=== PATIENT | female | born 1935 | race Caucasian/White ===

== ENCOUNTER → 2016-08-29 | Outpatient (CLI) | payer MEDICARE, BC | LOC: GMAJ 17:22 | PROVIDERS: ATTEND Family Medicine | DX: N30.00 Acute cystitis without hematuria (principal) ==

== ENCOUNTER 2016-09-05 16:05 | Inpatient (IN) | payer MEDICARE, BC ==
--- NOTE | 2016-09-05 17:40 | HP ---
HISTORY OF PRESENT ILLNESS: This 81 year-old pleasant white female is admitted to the hospital because of worsening shortness of breath, especially worsening over the last week, yet present over the last 2 weeks. She has had increasing episodes of orthopnea requiring sitting up on the side of the bed in order to breathe and even just walking it is getting to the point where she has to stop because of the exertional dyspnea and the shortness of breath associated. She was seen earlier today in Dr. Oliveira office and they ordered a beta natriuretic peptide which was elevated at 462 and a D-dimer which was elevated at 795 with no previous studies available for comparison. Chest x-ray was performed and the results of which are not available. She had swelling in her right lower extremity and was referred to the hospital for venous Doppler exam to rule out DVT and none was noted. She has apparently had swelling in the same extremity in years past on several occasions and each ultrasound study, at least 2 of them noted, were negative for DVT presence. In the clinic, she had saturations down to 92% with associated shortness of breath and worsening right lower extremity edema. She is on a lot of antihypertensive medications. It is of note that she did have an echocardiogram in October of 2009 which did reveal some aortic stenosis with regurgitation, otherwise with good ventricular function. No other echocardiograms performed recently. The patient did have a low degree of fever, over 99 degrees. The patient is admitted to the hospitalization for initiation of some gentle diuresis with parenteral loop diuretics as well as fluid restrictions and ambulation studies. Repeat chest x- ray in the morning, diabetes management, cardiac enzyme serial examination and cultures pending with associated DVT prophylaxis. PAST MEDICAL HISTORY: 1. Hypertensive with associated cardiovascular disease with history of aortic stenosis and worsening dyspnea. 2. Osteoarthritis. 3. Elevated lipids. 4. History of ureteral stones in the past. 5. History of right lower extremity edema chronically noted. 6. Low back pain with spinal stenosis. 7. Diabetes mellitus type 2 on oral therapy. 8. History of a cough with dusty inhibitor medication. 9. Some dizziness when turning over in the bed at nighttime. 10. History of elevated calcium requiring parathyroid removal. PAST SURGICAL HISTORY: 1. Hysterectomy. 2. Gallbladder removal. 3. Appendectomy. 4. . 5. Left knee replacement. 6. Tubal ligation. 7. Spine surgery of the lumbar spine. 8. Single benign parathyroidectomy performed years ago. CURRENT MEDICATIONS: Please refer to nurses notes and please note that one of the medicines, metoprolol 100 mg, she takes 200 mg in the morning but the initial outpatient record states that she was requested to take 200 mg twice a day which she does not take. ALLERGIES: PENICILLIN. FAMILY HISTORY: Positive for cancer and CVAs. SOCIAL HISTORY: She currently works at [employer]. She has never smoked. REVIEW OF SYSTEMS: The patient states that she has gained about 10 pounds in the last week with a lot of it being present with swelling of her right lower extremity and with increasing shortness of breath. HEENT: Dizziness upon movement and rolling over in the bed. LUNGS: Exertional shortness of breath, no cough or hemoptysis. CARDIOVASCULAR: No significant chest pains or palpitations. GI: Appetite is fairly good and she is on just a regular diet. Family states that she does not eat very much and does not drink much fluids either. NEUROLOGICAL : Quite weak and especially short of breath upon exertion with recurring episodes of right lower extremity edema state. She is on no diuresis in recent past. PHYSICAL EXAMINATION: VITAL SIGNS: Temperature 99.3, pulse 88, blood pressure 196/77, respirations 21, pulse ox 95% at rest on room air. Weight 107.5 kilos. GENERAL: The patient is awake, alert, cheerful and oriented. Family is present and are helpful with the history. At the present time with the patient lying in the bed with head elevated, she is not describing nearly the amount of dyspnea that she presented earlier, especially when walking down the hallway in the hospital. She tolerated the venous Doppler exam quite well with no DVT noted. HEENT: Unremarkable. NECK: No carotid bruits. Slight increased jugular venous distention on the right noted. CHEST: Diminished breath sounds with occasional rhonchi primarily in the bases but otherwise pretty clear. CARDIOVASCULAR: Heart tones are somewhat distant yet regular, not fast. ABDOMEN: Obese yet soft, no organomegaly, masses or tenderness. Bowel tones are present though somewhat decreased. Constipation has been noted recently. EXTREMITIES: Right leg is noticeably more prominent with increased circumference compared to the left but no erythema. She does have some slight tenderness upon palpation. NEUROLOGIC: No focal neurological deficits and the patient is awake, alert, and oriented and communicative. LABORATORY: Pending except for outpatient determination of a D-dimer of 795 and a beta natriuretic peptide of 462. Other studies pending including cardiac enzymes, thyroid function, electrolytes, urinalysis and chest x-ray pending. X-ray was taken in the clinic and results will be available when the clinic opens up again. ASSESSMENT: 1. Acute dyspnea with shortness of breath, orthopnea and exertional dyspnea aggravation over the last two weeks worsening. 2. Evidence of an acute congestive heart failure of undetermined type. 3. Echocardiographic evidence of aortic stenosis and regurgitation. 4. Febrile illness. 5. Hypertension quite severe with cardiovascular complications. 6. Chronic osteoarthritis. 7. Hyperlipidemia. 8. History of recurring urinary stones of ureteral location. 9. Recurring right lower extremity edema. 10. History of spinal stenosis with low back pain. 11. History of diabetes mellitus type 2. PLAN: The patient is admitted to the hospital for initiation of parenteral loop diuresis with furosemide. Observe closely intake and output. Observe electrolytes. Laboratory studies are pending including blood cultures because of the low grade fever present upon presentation. Repeat chest x-ray in the morning for reevaluation. Will hold off on significant IV hydration at this time because of the appearance of a fluid overloaded state. Reevaluate in the morning and close followup with Dr. Oliveira when stable. #[id number] [facility]
[2016-09-05] MEDS ORDERED: FUROSEMIDE INJ 20 MG/2 ML VIAL IV ONE (19:21)
[2016-09-05] MEDS ORDERED: MAGNESIUM HYDROXIDE 30 ML UD PO PRN (19:21)
[2016-09-05] MEDS ORDERED: NITROGLYCERIN 0.4 MG 25 EA TAB SL PRN (19:21)
[2016-09-05] MEDS ORDERED: SODIUM CHLORIDE 0.9% (FLUSH) 10 ML SYG IV PRN (19:21)
[2016-09-05] MEDS ORDERED: ONDANSETRON INJ 4 MG/2 ML VIAL IV PRN (19:21)
[2016-09-05] MEDS ORDERED: ACETAMINOPHEN 325 MG TAB PO PRN (19:21)
[2016-09-05] MEDS ORDERED: IV SET AND CAP CHANGE INJ INJ SCH (19:30)
[2016-09-05] MEDS ORDERED: ENOXAPARIN SODIUM 40 MG/0.4 ML SYG SUBCU SCH (20:00)
[2016-09-05] MEDS: SODIUM CHLORIDE 0.9% (FLUSH) 10 ML SYG IV SCH (20:16)
[2016-09-06] MEDS: METOPROLOL TARTRATE 50 MG TAB PO SCH ×2 (06:22→17:45)
[2016-09-06] MEDS: ACETAMINOPHEN W/COD #3 TAB 1 EA TAB PO PRN ×2 (06:27→20:21)
--- NOTE | 2016-09-06 07:17 | RAD ---
EXAM: Two view chest. INDICATION: Chest pain. COMPARISON: Chest x-ray: None. FINDINGS: Cardiac silhouette: Unremarkable. Cathryn: Unremarkable. Lobar consolidation: None. Pleural effusion: None. Pneumothorax: None. Other: The aorta is tortuous. Bones: S-shaped scoliosis of the thoracic spine Other: None. IMPRESSION: 1. No acute cardiopulmonary process. Electronically signed by: Murali Ca MD 09/06/2016 7:17 AM CDT Workstation: [id number]
[2016-09-06] MEDS ORDERED: metFORMIN HCL 500 MG TAB ONE (07:41)
[2016-09-06] MEDS: MULTIPLE VITAMIN 1 EA TAB PO SCH (08:52)
[2016-09-06] MEDS: metFORMIN XR 500 MG TAB.ER.24 PO SCH (08:52)
[2016-09-06] MEDS: FUROSEMIDE INJ 20 MG/2 ML VIAL IV SCH ×2 (08:53→17:45)
[2016-09-06] MEDS: amLODIPine BESYLATE 5 MG TAB PO SCH (08:53)
[2016-09-06] MEDS: SODIUM CHLORIDE 0.9% (FLUSH) 10 ML SYG IV SCH ×2 (08:55→20:21)
[2016-09-06] MEDS: CHOLECALCIFEROL 2,000 IU TAB PO SCH (08:55)
--- NOTE | 2016-09-06 13:29 | PN ---
DATE: 09/06/16 SUBJECTIVE: The patient is sitting up and eating on the side of her bed. She is still complaining of some lateral low right abdominal discomfort present for the last week. She feels that she has had somewhat similar discomfort in the past with recurring urinary ureteral stones which will require further followup and evaluation. She states she is still somewhat dyspneic on exertion today and does not know that he is a lot better and for this reason, we are still awaiting the ambulation study to assist in quantifying that degree of dyspnea and desaturation. She has not seen Dr. Charles, urologist, for quite a while and so scheduling an appointment may be helpful by tomorrow if an opening is available to more fully evaluate for possible stone. OBJECTIVE: VITAL SIGNS: Afebrile. Pulse 54. Blood pressure 170/74. Pulse oximetry 96%. She has lost approximately 2 pounds of weight overnight and has had a fairly good output of urine, over 1300 mL yesterday and last night with a fairly good response to even a lose dose of the furosemide parenterally given. She continues on a fluid restriction diet. LUNGS: Generally clear. Chest x- ray does not show any significant pulmonary edema at this time, though heart size is somewhat enlarged and atherosclerotic changes also present. LABORATORY: White count 5,900, hemoglobin 11.6, D-dimer 795. Chemistries show beta natriuretic peptide 462, potassium 4, glucose 121. Kidney functions normal. Urinalysis does show some hematuria and 1+ budding yeast. Stool guaiac negative on one occasion. Blood cultures negative at this time. ASSESSMENT: 1. Acute dyspnea with shortness of breath, orthopnea and exertional dyspnea aggravated and getting worse over the last two weeks. 2. Evidence of an acute congestive heart failure of undetermined type with elevated beta natriuretic peptide. 3. Echocardiographic evidence of aortic stenosis and regurgitation with recheck of an echocardiogram as soon as can be scheduled through the clinic. 4. Febrile illness, showing improvement. 5. History of hypertension, quite severe with cardiovascular sequelae. 6. Chronic osteoarthritis. 7. Hyperlipidemia. 8. History of recurring ureterolithiasis and the possibility of an acute recurrence in the last week on the right. Will require further investigation today. 9. Recurring right lower extremity edema with FABIOLA hose, elevation and gentle diuresis in process, showing slight improvement. 10. History of spinal stenosis with chronic low back pain. 11. History of diabetes mellitus, type 2, on oral hypoglycemic agent. PLAN: The patient will be scheduled today for a renal ultrasound to more clearly delineate the possibility of hydronephrosis and hydroureter if there is a significant ureteral stone present on the right. She has not seen Dr. Charles for sometime and may attempt to get scheduled in his [place] office tomorrow when he arrives to see if he would be able to assist with reviewing the ultrasound of the kidneys to be performed later today to assist with that evaluation. The patient remains on fluid restrictions. Ambulation by respiratory therapy is pending to assist with the determination of the etiology and the severity of the desaturation at the time of exertional dyspnea. Continue close evaluation and reevaluate in the morning. #[id number] [facility]
--- NOTE | 2016-09-06 13:39 | US ---
EXAM DESCRIPTION: Renal CLINICAL HISTORY: 81 years, Female, right ureteral stone? obstruction? COMPARISON: None. FINDINGS: Right kidney 11.3 cm. Left kidney 10.9 cm. Mild thinning of the renal cortex bilaterally suggesting chronic ischemic change. Mild hydronephrosis of the right kidney. There is also a cyst in the right kidney upper pole 7.3 x 5.4 x 5.8 cm. No views of the bladder provided. IMPRESSION: 1. Mild hydronephrosis of the right kidney. Discrete kidney or ureteral stone is not clearly seen 2. Large cyst upper pole right kidney about 7 cm 3. Left kidney unremarkable except for some mild chronic thinning of the renal cortex Electronically signed by: Lamin Rojas MD 09/06/2016 1:39 PM CDT
--- NOTE | 2016-09-06 13:40 | US ---
EXAM DESCRIPTION: Venous,Lower Extremity RT CLINICAL HISTORY: 81 years, Female, LOCALIZED [place] COMPARISON: None. FINDINGS: The right common femoral, superficial femoral, deep femoral, popliteal, posterior tibial and peroneal veins identified. Appropriate flow compressibility and augmentation. IMPRESSION: No evidence deep venous thrombosis right lower extremity. Electronically signed by: Lamin Rojas MD 09/06/2016 1:40 PM CDT
[2016-09-06] MEDS: ENOXAPARIN SODIUM 40 MG/0.4 ML SYG SUBCU SCH (20:22)
[2016-09-07] MEDS: ACETAMINOPHEN W/COD #3 TAB 1 EA TAB PO PRN ×3 (04:34→23:29)
[2016-09-07] MEDS: METOPROLOL TARTRATE 50 MG TAB PO SCH ×2 (08:12→16:58)
[2016-09-07] MEDS: metFORMIN XR 500 MG TAB.ER.24 PO SCH (08:12)
[2016-09-07] MEDS: FUROSEMIDE INJ 20 MG/2 ML VIAL IV SCH ×2 (08:52→16:59)
[2016-09-07] MEDS: CHOLECALCIFEROL 2,000 IU TAB PO SCH (08:52)
[2016-09-07] MEDS: MULTIPLE VITAMIN 1 EA TAB PO SCH (08:52)
[2016-09-07] MEDS: SODIUM CHLORIDE 0.9% (FLUSH) 10 ML SYG IV SCH ×2 (08:53→20:51)
[2016-09-07] MEDS: amLODIPine BESYLATE 5 MG TAB PO SCH (08:53)
[2016-09-07] MEDS: KETOROLAC TROMETHAMINE INJ 30 MG/ML VIAL IV PRN (10:33)
[2016-09-07] MEDS ORDERED: HYDROcodone 7.5MG/APAP 325MG 1 EA TAB PO PRN (11:09)
--- NOTE | 2016-09-07 11:32 | PN ---
DATE: 09/07/16 SUBJECTIVE: The patient is sitting up on the bed having increased discomfort in her right lower abdominal region resembling pain she has had in the past with ureteral or kidney stones. The pain has been present specifically off and on for the last week, but became worse earlier today. Yesterday, she did have a renal ultrasound performed which revealed a large right renal cyst about 7 cm in size as well as a degree of hydronephrosis and hydroureter on the right, not noted on the left. This is suggestive of a stone present on the right recurrent. She is scheduled to see Dr. Charles later today for his advice. OBJECTIVE: VITAL SIGNS: Afebrile. Pulse 60. Blood pressure 172/82. Pulse oximetry 92% on room air. Awaiting ambulation study. We will recheck weight again having lost about 4 pounds yesterday and with fairly good intake and output evident. Pt is markedly improved with her dyspnea on exertion compared to admission. Awaiting repeat urinalysis before being seen by Dr. Charles to assist with his decision process. ASSESSMENT: 1. Chronic congestive heart failure of undetermined type with an acute exacerbation with elevated beta natriuretic peptide and significant symptoms, showing some improvement clinically with further diuresis. 2. History of echocardiographic findings of aortic stenosis and regurgitation a number of years ago, to be rescheduled for reevaluation at this time. 3. Febrile illness, showing improvement. 4. History of hypertension, quite severe with cardiovascular sequelae. 5. Lower right abdominal discomfort, resembling previous symptoms of ureteral stones with associated right hydronephrosis and right hydroureter, suggesting a partially obstructing stone on the right. We will initiate analgesic program as well as filtering of urine to collect as possible with urological clinic followup today. 6. Significant right lower extremity edema, treated with FABIOLA hose, elevation and gentle diuresis, showing some improvement in the swelling. 7. History of spinal stenosis with chronic low back pain. 8. History of diabetes mellitus, type 2, on oral hypoglycemic agents. PLAN: We will continue with filtering of the urine to try to collect a stone for analysis as possible. Continue with gentle diuresis for one more day to assist with further removal of the significant fluid accumulation. Recheck weight with a standing scale versus bed scale. Try Toradol IV on an as needed basis as well as hydrocodone to see if the analgesic response will help with the passage of the stone and subsequent ureteral spasm. Close followup suggested. Anticipate reevaluation with beta natriuretic peptide in the morning and if stabilized, will be able to continue with ongoing followup with Dr. Oliveira in the clinic. Continue with moderate fluid restrictions, gentle diuresis. Repeat echocardiogram and followup necessary. #[id number] [facility]
--- NOTE | 2016-09-07 15:27 | CONS ---
DATE OF CONSULTATION: 09/07/16 HISTORY OF PRESENT ILLNESS: Ms. Alejandre is an 81 year-old white female who has had multiple urinary stones and multiple endoscopic urologic procedures before. She is well known to me. Apparently she presented about 3 days ago to the hospital with right lower extremity swelling along with some shortness of breath and has responded to diuresis. She developed some right flank discomfort and was given some Toradol and the discomfort is now significantly improved. A renal ultrasound was obtained demonstrating some mild right hydronephrosis and possibly some small urinary stones in both kidneys. I reviewed those films today. Again, the patient has a long history of urinary stone disease. She has been on some anti-stone medical prophylaxis in the past. PHYSICAL EXAMINATION: GENERAL: Her examination suggests an elderly female who has some morbid obesity. She is alert and talkative. ABDOMEN: The abdomen is benign. BACK: No CVA tenderness. EXTREMITIES: She does have a little mild right lower extremity edema, but it is really marginal compared to the left. IMPRESSION: 1. Mild right hydronephrosis and right flank discomfort. PLAN: I think we need a CT scan of her abdomen and pelvis without contrast to better delineate the urinary system and rule out a urinary stone. I talked to Dr. Conroy about this and he is going to order the study and then let me know the results. In the meantime, I suggest we just continue conservative measures for Ms. Alejandre in regard to possible stone disease with hydration if possible and analgesics as needed. #[id number] [facility]
--- NOTE | 2016-09-07 15:55 | CT ---
Procedure: CT ABDOMEN PELVIS WITHOUT IV CONTRAST Exam Date: 09/07/2016 Ordering Provider: LEW NJ MD Clinical Indication: Right ureteral stone.size-location Comparison: 09/06/2016 renal ultrasound TECHNIQUE: Unenhanced 5 mm images were taken through the abdomen and pelvis without the administration of oral contrast material. Coronal and sagittal reformatted images were generated. This exam was performed according to our departmental dose optimization program which includes use of automated exposure control, adjustment of the mA and/or kV according to patient size and/or use of iterative reconstruction technique. FINDINGS: Lower chest: Nonacute Abdomen: Liver and biliary system: No gross liver lesions on this noncontrast examination. No biliary ductal dilatation. Prior cholecystectomy. Spleen: Unremarkable Pancreas: Unremarkable Adrenal glands: Unremarkable Kidneys, ureters, bladder: 6.8 cm cyst in the upper pole the right kidney. There are multiple stones within the right ureter on series 2 images 45 and 52 through 56. Largest of these measures 9 mm. There are multiple additional stones within the right renal collecting system. There is mild to moderate hydronephrosis in the right kidney. No hydronephrosis in the left kidney. There is cortical thinning of both kidneys. Bladder is unremarkable. Lymph nodes: No lymphadenopathy. Retroperitoneum, peritoneal cavity, abdominal wall : There is a small amount of ascites which tracks caudally into the pelvis. Heterogenous ill-defined appearance of the omentum, question omental caking. Vessels: Calcified atherosclerotic plaque throughout the aorta and its branch vessels. No abdominal aortic aneurysm. Pelvis: Lymph nodes: No lymphadenopathy Bowel: No bowel obstruction. Colonic diverticulosis without evidence of diverticulitis. No findings to suggest acute appendicitis. No bowel wall thickening. Pelvic organs: Prior hysterectomy. Bones: No acute osseous abnormalities. Bilateral pars defects at L4. Grade 1 anterolisthesis of L4 on L5. Postsurgical changes in the lumbar spine. Scoliosis. No destructive bony lesions. IMPRESSION: 1.There are multiple stones within the right ureter. Largest of these measures 9 mm. There is mild to moderate hydronephrosis in the right kidney. 2. Features suggestive of omental caking which is of uncertain etiology. 3. Small amount of ascites tracks caudally into the pelvis. 4. Colonic diverticulosis without evidence of diverticulitis. 5. Additional nonemergent findings as above. Electronically signed by: Oscar Gupta MD 09/07/2016 3:55 PM CDT
[2016-09-07] MEDS: ENOXAPARIN SODIUM 40 MG/0.4 ML SYG SUBCU SCH (20:51)
[2016-09-08 03:50] VITALS: BP 160/70; TEMP 98.4
[2016-09-08] MEDS: KETOROLAC TROMETHAMINE INJ 30 MG/ML VIAL IV PRN (04:03)
[2016-09-08 06:03] VITALS: O2SAT 92
--- NOTE | 2016-09-08 08:01 | DS ---
DISCHARGE DIAGNOSIS: 1. Chronic congestive heart failure of undetermined type with an acute exacerbation associated with elevated beta natriuretic peptide and significant exertional dyspnea and pedal edema, especially right leg. . 2. History of echocardiographic findings of aortic stenosis and regurgitation a number of years ago, to be rescheduled for reevaluation due to the exacerbation episode.. 3. Febrile illness, initially noted, showing improvement and resolution. 4. History of hypertension, quite severe with cardiovascular sequelae. 5. Multiple right ureteral stones with obstruction with associated hydronephrosis hydroureter and multiple stones also present in the renal pelvis requiring urological attention to prevent significant injury to the kidney function and to assist with symptom control. The patient does have right lower lateral abdominal pain occasionally with some discomfort higher up in the CVA region. 6. Significant right lower extremity edema, treated with FABIOLA hose, elevation and gentle diuresis, showing some improvement at the time of discharge with no evidence of DVT at this time nor on previous exams. 7. History of spinal stenosis with chronic low back pain. 8. History of diabetes mellitus, type 2, on oral hypoglycemic agents. HISTORY OF PRESENT ILLNESS: This 81 year-old white female is admitted to the hospital from Dr. Oliveira office because of worsening shortness of breath, especially worsening over the last week yet present over the last 2 weeks. She has difficulty walking a very short distance without significant dyspnea. Increasing episodes of orthopnea also noted. Significant right-sided lower extremity edema also present which has happened in the past but this time a little more severe. In Dr. Oliveira office elevated beta natriuretic peptide of 462 and a D-dimer of 795 was noted. Venous Doppler exam was performed but no acute DVT was evident. The patient was admitted to the hospital for gentle continued diuresis and close management. During her hospital stay, the right-sided lower abdominal discomfort became more prominent, especially on the day prior to her discharge. It was at this time an ultrasound was performed and showed right-sided hydronephrosis and a right renal cyst. Then the patient had a CT scan to look more specifically for an obstructing stone in the right ureter and multiple stones were noted, the largest being 9 mm requiring urological procedures to help stent and remove. The patient was seen in Urology Clinic with Dr. Charles on , Monday, and was scheduled for urgent procedures to stent the obstructing lesions in the right ureter and eventually remove the obstructing stones. LABORATORY STUDIES: Potassium 4.0, BUN 11, creatinine 0.92, glucose 121, calcium 9.6, magnesium 1.5 , liver enzymes normal. Troponin 0.02, beta natriuretic peptide 462, TSH 2.15, albumin 3.6. White count is 5,600, hemoglobin of 12.2. D-dimer 795. Urinalysis persisted in showing hematuria and stool guaiac was negative for blood on one specimen. Blood cultures are negative. X-RAYS: Lower extremity ultrasound showed no DVT. Chest x-ray was performed and showed no acute processes. Renal ultrasound did show some hydronephrosis on the right and a 7 cm renal cyst in the upper pole of the right kidney. Abdominal pelvic CT was performed and showed multiple stones within the right ureter with obstruction and moderate hydronephrosis, the largest stone being 9 mm. She also has multiple stones within the renal pelvis on the right as well as the large renal cyst on the right kidney. HOSPITAL COURSE: The patient was feeling much improved at the time of discharge. She was able to ambulate with no significant desaturation of pulse oximetry. Her abdominal pain seems to be relieved by Toradol administration. She will continue with the same program until being able to be discharged on the morning of , 09/08/16 to go by [facility] for urological procedures by Dr. Charles. PLAN: Discharge from the hospital on the morning of 09/08/16. Family is going to be available to assist in getting the patient to [facility] beginning at 5:30 in the morning to be there by [address] Charles can evaluate and begin the procedures of helping her with her obstructive uropathy on the right. She is going to have close followup with him regarding the renal stones. Also followup with Dr. Oliveira o the congestive heart failure for swelling and shortness of breath. He will help schedule her for another echocardiogram as indicated. She is to be sent home with copies of recent x-rays on as well as lab results. Tried to limit her fluid intake to under 1500 milliliters per 24 hours to prevent significant edema formation. Continue home medications as outlined. Close followup of the blood pressure and adjust medications as needed with Dr. Oliveira assistance. Use the Lasix for the next few weeks and adjust the dose with Dr. Oliveira as the swelling hopefully will reduce. Avoid food and drink after midnight on the night before discharge because of the urological procedure with Dr. Charles the next day. Wear panty hose at home to assist in preventing extra swelling in the legs as possible. Return if not improving. #[id number] SAAD
[2016-09-08] MEDS ORDERED: NON-FORMULARY MEDICATION 1 EA MIS (Metoprolol Tartrate [Lopressor] 100 MG) PO SCH (09:00)
== END 2016-09-08 06:00 | disposition short-term general hospital (02) | DRG 292 ==
LOC: US 16:05 → MS 17:37 → OBSVTOIN 17:37 → INTOOBSV 17:37
PROVIDERS: ADMIT Emergency Medicine; ATTEND Emergency Medicine
DX: I50.9 Heart failure, unspecified (principal); N13.2 Hydronephrosis with renal and ureteral calculous obstruction; Z68.41 Body mass index [BMI] 40.0-44.9, adult; R60.0 Localized edema; R50.9 Fever, unspecified; I35.0 Nonrheumatic aortic (valve) stenosis; I11.0 Hypertensive heart disease with heart failure; G89.29 Other chronic pain; M48.00 Spinal stenosis, site unspecified; E11.9 Type 2 diabetes mellitus without complications; M19.90 Unspecified osteoarthritis, unspecified site; E78.5 Hyperlipidemia, unspecified; E66.9 Obesity, unspecified; Z96.652 Presence of left artificial knee joint; Z79.84 Long term (current) use of oral hypoglycemic drugs; Z88.0 Allergy status to penicillin; Z79.899 Other long term (current) drug therapy

== ENCOUNTER → 2016-11-02 | Outpatient (CLI) | payer MEDICARE, BC | END | disposition home or self-care (01) | LOC: LAB.O 14:16 | PROVIDERS: ATTEND Urology | DX: N20.0 Calculus of kidney (principal); R31.9 Hematuria, unspecified ==

== ENCOUNTER → 2016-11-09 | Outpatient (CLI) | payer MEDICARE, BC ==
--- NOTE | 2016-11-10 09:55 | CT ---
EXAM DESCRIPTION: Abdoment/Pelvis w/o Contrast CLINICAL HISTORY: RENAL STONE COMPARISON: September 07, 2016 TECHNIQUE: CT of the abdomen and Pelvis was performed without IV contrast. This exam was performed according to our departmental dose-optimization program, which includes automated exposure control, adjustment of the mA and/or kV according to patient size and/or use of iterative reconstruction technique. FINDINGS: There are subtle small calcifications in the inferior pole of the right kidney measuring up to 5 mm diameter. No right ureteral calculus or right-sided hydronephrosis. Again seen is a 5.5 cm right renal cyst, stable. No left-sided urinary tract calculus. Bilateral renal cortical atrophy is noted, unchanged from the prior study. The bladder is suboptimally distended, but no bladder calcification or bladder wall thickening is seen. Again noted is a moderate amount of ascites adjacent to the liver and spleen extending inferiorly into the pelvis. Irregular soft tissue density is noted in the omentum, nonspecific. The gallbladder is surgically absent. Evaluation of solid organs is limited by lack of IV contrast, but the liver, spleen, pancreas and adrenals are unremarkable. There are mural calcifications in the abdominal aorta without aneurysm. No small bowel wall thickening or dilated small bowel loops. The uterus and ovaries are not identified, please correlate with surgical history. No colonic wall thickening or pericolonic inflammation. Mild colonic diverticulosis. No lung base abnormality. No pneumoperitoneum or adenopathy. 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 IMPRESSION: Several small nonobstructing right renal calculi, bilateral renal cortical atrophy and an uncomplicated 5.5 cm right renal cyst, stable, but no additional abnormality to explain hematuria. Moderate amount of ascites and omental caking, nonspecific. Findings are unchanged from August, but are new from September,. Neoplasm is not excluded, and omental biopsy should be considered. Electronically signed by: Dennis Jackson MD 11/10/2016 9:54 AM CDT Workstation: [email or web address]
--- NOTE | 2016-11-10 16:41 | US ---
EXAM DESCRIPTION: Thyroid ultrasound CLINICAL HISTORY: Thyroid nodule. COMPARISON: None. TECHNIQUE: Routine sonographic imaging of the thyroid gland. FINDINGS: The right thyroid lobe measures 4.0 x 1.6 x 2.0 cm. The left thyroid lobe measures 3.4 x 1.6 x 1.8 cm. The thyroid isthmus measures 0.4 cm in thickness. Diffusely heterogeneous appearance of the thyroid gland. Several isoechoic to hypoechoic nodules are demonstrated throughout both lobes. The largest nodule in the mid right lobe measures 1.0 cm in greatest dimension. The largest nodule in the upper left lobe measures 0.8 cm in greatest dimension. IMPRESSION: Heterogeneous multinodular appearance of the thyroid. The largest nodule measures 1.0 cm on today's exam. These do not meet criteria for ultrasound-guided biopsy at this time. Consider follow-up ultrasound in 6-12 months to confirm stability. Electronically signed by: Osbaldo Laughlin MD 11/10/2016 4:39 PM CDT
== END ==
LOC: US 13:43
PROVIDERS: ATTEND Urology
DX: N20.0 Calculus of kidney (principal); E04.1 Nontoxic single thyroid nodule

== ENCOUNTER → 2016-11-16 | Outpatient (CLI) | payer MEDICARE, BC | END | disposition home or self-care (01) | LOC: LAB.O 15:01 | PROVIDERS: ATTEND Urology | DX: R10.9 Unspecified abdominal pain (principal) ==

== ENCOUNTER → 2016-12-07 | Outpatient (CLI) | payer MEDICARE, BC | END | disposition home or self-care (01) | LOC: LAB.O 14:19 | PROVIDERS: ATTEND Urology | DX: R31.9 Hematuria, unspecified (principal) ==